=== PATIENT | female | born 1985 | race Caucasian/White ===

== ENCOUNTER 2018-07-22 15:50 | Outpatient (CLI) | payer MEDICAID ==
[2018-07-22] MEDS: BETAMET NA PHOS/AC(6 MG/ML) 2 ML INJ SYG IM (17:23)
[2018-07-22] MEDS: TERBUTALINE 1 MG/ML INJ SC (17:23)
[2018-07-22 18:01] LABS: ADD MAN DIFF? NO; BASOPHILS % 0.2 % (0.0-2.0); EOSINOPHILS # 0.1 10^3/ul (0.0-0.5); EOSINOPHILS % 0.6 % (0.0-7.0); HEMATOCRIT 38.1 % (37.0-47.0); HEMOGLOBIN 12.2 g/dl (12.0-16.0); LYMPHOCYTES # 3.9 10^3/ul (0.8-2.9); LYMPHOCYTES % 28.2 % (15.0-51.0); MEAN CORPUSCULAR HEMOGLOBIN 27.7 pg (29.0-33.0); MEAN CORPUSCULAR VOLUME 86.6 fl (82.0-101.0); MEAN PLATELET VOLUME 10.9 fl (7.4-10.4); MONOCYTE # 0.7 10^3/ul (0.3-0.9); MONOCYTES % 4.9 % (0.0-11.0); NEUTROPHIL # 9.1 10^3/ul (1.6-7.5); NEUTROPHILS % 64.9 % (39.0-77.0); PLATELET COUNT 324 10^3/UL (140-415); RED CELL DISTRIBUTION WIDTH 14.3 % (11.5-14.5)
[2018-07-22] MEDS: LACTATED RINGER'S 500 ML IV (18:16)
[2018-07-22] MEDS: LACTATED RINGER'S 1,000 ML IV (18:43)
== END 2018-07-22 20:05 | disposition home or self-care (01) ==
LOC: OBT 15:50 → L-D 15:53 → OBT 20:05
DX: O62.9 Abnormality of forces of labor, unspecified (principal); Z3A.36 36 weeks gestation of pregnancy
CPT/HCPCS: 85025; 96360; 96361; 96372

== ENCOUNTER 2018-07-23 17:26 | Outpatient (CLI) | payer MEDICAID ==
[2018-07-23] MEDS ORDERED: BETAMET NA PHOS/AC(6 MG/ML) 2 ML INJ SYG IM (18:30)
== END 2018-07-23 18:50 | disposition home or self-care (01) ==
LOC: OBT 17:26 → L-D 17:27 → OBT 18:50
DX: O36.8930 Maternal care for other specified fetal problems, third trimester, not applicable or unspecified (principal); Z3A.37 37 weeks gestation of pregnancy
CPT/HCPCS: 76818

== ENCOUNTER 2018-07-26 17:07 | Outpatient (CLI) | payer MEDICAID | END 2018-07-26 18:45 | disposition home or self-care (01) | LOC: OBT 17:07 → L-D 17:09 → OBT 18:45 | DX: O28.9 Unspecified abnormal findings on antenatal screening of mother (principal); Z3A.37 37 weeks gestation of pregnancy | CPT/HCPCS: 76815; 76818 ==

== ENCOUNTER 2018-08-06 15:10 | Inpatient (IN) | payer MEDICAID ==
[2018-08-06 16:01] LABS: RUPTURE FETAL MEMBRANES POSITIVE (NEGATIVE)
[2018-08-06] MEDS ORDERED: MISOPROSTOL 200 MCG TAB PR (16:30)
[2018-08-06] MEDS ORDERED: METHYLERGONOVINE 0.2 MG INJ IM (16:30)
[2018-08-06] MEDS ORDERED: CARBOPROST 250 MCG INJ IM (16:30)
[2018-08-06 16:31] LABS: WHITE BLOOD COUNT 12.2 10^3/ul (4.8-10.8)
[2018-08-06 16:31] LABS: ADD MAN DIFF? NO; BASOPHILS % 0.2 % (0.0-2.0); EOSINOPHILS # 0.1 10^3/ul (0.0-0.5); EOSINOPHILS % 0.5 % (0.0-7.0); HEMATOCRIT 40.2 % (37.0-47.0); LYMPHOCYTES # 2.6 10^3/ul (0.8-2.9); LYMPHOCYTES % 21.4 % (15.0-51.0); MEAN CORPUSCULAR HEMOGLOBIN 27.8 pg (29.0-33.0); MEAN CORPUSCULAR HGB CONC 32.3 g/dl (32.0-37.0); MEAN CORPUSCULAR VOLUME 85.9 fl (82.0-101.0); MEAN PLATELET VOLUME 11.2 fl (7.4-10.4); MONOCYTE # 0.7 10^3/ul (0.3-0.9); MONOCYTES % 5.6 % (0.0-11.0); NEUTROPHIL # 8.7 10^3/ul (1.6-7.5); NEUTROPHILS % 71.5 % (39.0-77.0); PLATELET COUNT 331 10^3/UL (140-415); RED BLOOD COUNT 4.68 10^6/ul (4.20-5.40)
[2018-08-06 16:39] LABS: ADD UMIC YES; UR AMORPHOUS CRYSTAL FEW /HPF (NONE SEEN); UR ASCORBIC ACID NEGATIVE (NEGATIVE); UR BACTERIA FEW /HPF (NONE SEEN); UR BILIRUBIN (Dip) NEGATIVE (NEGATIVE); UR BLOOD (Dip) 1+ mg/dL (NEGATIVE); UR CLARITY CLOUDY (CLEAR); UR COLOR YELLOW (YELLOW); UR GLUCOSE (Dip) NEGATIVE (NEGATIVE); UR KETONES (Dip) NEGATIVE (NEGATIVE); UR LEUKOCYTE ESTERASE (Dip) 1+ Leu/ul (NEGATIVE); UR NITRITE (Dip) NEGATIVE (NEGATIVE); UR RBC 23 /HPF (0-5); UR SPECIFIC GRAVITY (Dip) 1.005 (1.003-1.030); UR SQUAMOUS EPITHELIAL CELL MODERATE /HPF (FEW); UR TOTAL PROTEIN (Dip) 1+ mg/dl (NEGATIVE); UR UROBILINOGEN (Dip) NEGATIVE (NEGATIVE); UR WBC 20 /HPF (0-5)
[2018-08-06 16:52] LABS: INR 0.85; PROTIME 11.7 Sec (11.9-14.9); PT RATIO 0.9
[2018-08-06 16:53] LABS: PARTIAL THROMBOPLASTIN TIME 24.7 Sec (23.0-35.0)
[2018-08-06 17:20] LABS: HEPATITIS B SURFACE ANTIGEN NEGATIVE (NEGATIVE)
[2018-08-06] MEDS: LACTATED RINGER'S 1,000 ML IV ×3 (18:49→22:27)
[2018-08-06 20:31] LABS: RAPID PLASMA REAGIN NONREACTIVE (NR)
[2018-08-06] MEDS ORDERED: BUPIVACAINE 0.75%/DEXT (SPINAL) 2 ML INJ (21:30)
[2018-08-06] MEDS ORDERED: morphine SULFATE/PF (10 MG/10 ML) INJ (21:31)
[2018-08-06] MEDS ORDERED: MIDAZOLAM 1 MG/ML 2 ML INJ ×3 (22:14→22:44)
[2018-08-06] MEDS ORDERED: OXYTOCIN 10 UNIT INJ (22:15)
[2018-08-06] MEDS ORDERED: ONDANSETRON 4 MG INJ (22:25)
[2018-08-06] MEDS ORDERED: NALBUPHINE HCL (10 MG/1 ML) INJ IV (22:30)
[2018-08-06] MEDS ORDERED: NALOXONE (0.4 MG/ML) INJ IV (22:30)
[2018-08-06] MEDS ORDERED: ONDANSETRON 4 MG INJ IV (22:30)
[2018-08-06] MEDS ORDERED: DIPHENHYDRAMINE 50 MG INJ IV ×2 (22:30)
[2018-08-06] MEDS ORDERED: HYDROmorphONE 0.5 MG/0.5 ML SYG IV ×2 (22:30)
[2018-08-06] MEDS ORDERED: MIDAZOLAM 1 MG/ML 2 ML INJ IV (22:30)
[2018-08-06] MEDS ORDERED: ZOLPIDEM 5 MG TAB PO (22:30)
[2018-08-06] MEDS ORDERED: MEPERIDINE 25 MG INJ IV (22:30)
[2018-08-06] MEDS ORDERED: MEPERIDINE 100 MG INJ (22:47)
[2018-08-06] MEDS ORDERED: LIDOCAINE 100 MG SYRINGE (22:57)
[2018-08-06] MEDS ORDERED: LIDOCAINE 2% (SDV) 5 ML INJ (22:57)
[2018-08-06] MEDS ORDERED: AZITHROMYCIN 500MG/NS (PMX) 250 ML (23:31)
[2018-08-06] MEDS ORDERED: KETOROLAC 30 MG INJ (23:32)
[2018-08-06] MEDS: OXYTOCIN 30 UNITS/LR 500 ML IV (23:58)
[2018-08-06] MEDS: AZITHROMYCIN 500MG/NS (PMX) 250 ML IVPB (23:59)
[2018-08-07] MEDS: CEFAZOLIN 3 GM in DEXTROSE 5% 100 ML IV (01:11)
[2018-08-07] MEDS: KETOROLAC 30 MG INJ IV ×3 (02:05→17:56)
[2018-08-07] MEDS: CLINDAMYCIN 300 MG CAP PO ×4 (03:00→17:53)
[2018-08-07] MEDS ORDERED: LANOLIN 7 GM TUBE TOP (03:00)
[2018-08-07] MEDS: OXYTOCIN 30 UNITS/LR 500 ML IV (03:00)
[2018-08-07] MEDS ORDERED: OXYTOCIN 30 UNITS/LR 500 ML IV (03:00)
[2018-08-07] MEDS ORDERED: CARBOPROST 250 MCG INJ IM (03:00)
[2018-08-07] MEDS ORDERED: MISOPROSTOL 200 MCG TAB PR (03:00)
[2018-08-07] MEDS ORDERED: METHYLERGONOVINE 0.2 MG INJ IM (03:00)
[2018-08-07] MEDS: CEFAZOLIN 2 GM/50 ML (PMX) 50 ML IVPB ×3 (03:48→18:48)
[2018-08-07] MEDS: ONDANSETRON 4 MG INJ IV (04:31)
[2018-08-07] MEDS: LACTATED RINGER'S 1,000 ML IV ×2 (04:32→16:16)
[2018-08-07 05:58] LABS: WHITE BLOOD COUNT 12.8 10^3/ul (4.8-10.8)
[2018-08-07 05:58] LABS: ADD MAN DIFF? NO; BASOPHILS % 0.2 % (0.0-2.0); EOSINOPHILS % 0.2 % (0.0-7.0); HEMATOCRIT 32.5 % (37.0-47.0); HEMOGLOBIN 10.5 g/dl (12.0-16.0); LYMPHOCYTES % 15.9 % (15.0-51.0); MEAN CORPUSCULAR HEMOGLOBIN 27.9 pg (29.0-33.0); MEAN CORPUSCULAR HGB CONC 32.3 g/dl (32.0-37.0); MEAN CORPUSCULAR VOLUME 86.2 fl (82.0-101.0); MONOCYTE # 0.6 10^3/ul (0.3-0.9); MONOCYTES % 4.8 % (0.0-11.0); NEUTROPHILS % 78.4 % (39.0-77.0); PLATELET COUNT 266 10^3/UL (140-415); RED BLOOD COUNT 3.77 10^6/ul (4.20-5.40); RED CELL DISTRIBUTION WIDTH 15.2 % (11.5-14.5)
[2018-08-07] MEDS ORDERED: IBUPROFEN 800 MG TAB PO (06:00)
[2018-08-07] MEDS: SENNA/DOCUSATE NA (8.6MG/50MG) TAB PO ×2 (09:23→21:15)
[2018-08-07] MEDS: BISACODYL 10 MG SUPP PR (10:30)
[2018-08-07] MEDS: OXYCODONE/ACETAMINOPHEN (5/325) TAB PO ×2 (14:37→22:09)
[2018-08-07] MEDS: IBUPROFEN 800 MG TAB PO (22:28)
[2018-08-07 23:11] LABS: ADD MAN DIFF? NO
[2018-08-07 23:13] LABS: BASOPHILS % 0.2 % (0.0-2.0); EOSINOPHILS # 0.1 10^3/ul (0.0-0.5); EOSINOPHILS % 1.1 % (0.0-7.0); HEMATOCRIT 30.9 % (37.0-47.0); LYMPHOCYTES # 2.2 10^3/ul (0.8-2.9); LYMPHOCYTES % 21.9 % (15.0-51.0); MEAN CORPUSCULAR HEMOGLOBIN 27.8 pg (29.0-33.0); MEAN CORPUSCULAR HGB CONC 32.4 g/dl (32.0-37.0); MEAN CORPUSCULAR VOLUME 85.8 fl (82.0-101.0); MEAN PLATELET VOLUME 10.6 fl (7.4-10.4); MONOCYTE # 0.7 10^3/ul (0.3-0.9); MONOCYTES % 7.1 % (0.0-11.0); NEUTROPHIL # 6.8 10^3/ul (1.6-7.5); NEUTROPHILS % 69.1 % (39.0-77.0); PLATELET COUNT 266 10^3/UL (140-415); RED CELL DISTRIBUTION WIDTH 15.6 % (11.5-14.5)
[2018-08-07 23:13] LABS: WHITE BLOOD COUNT 9.9 10^3/ul (4.8-10.8)
[2018-08-07 23:31] LABS: ALANINE AMINOTRANSFERASE 26 IU/L (13-69); ALBUMIN 2.8 g/dl (3.3-4.9); ALBUMIN/GLOBULIN RATIO 0.96; ALKALINE PHOSPHATASE 124 IU/L (42-121); ANION GAP 4 (5-13); ASPARTATE AMINO TRANSFERASE 26 IU/L (15-46); BILIRUBIN,INDIRECT 0.2 mg/dl (0-1.1); BILIRUBIN,TOTAL 0.2 mg/dl (0.2-1.3); BLOOD UREA NITROGEN 6 mg/dl (7-20); CALCIUM 8.6 mg/dl (8.4-10.2); CARBON DIOXIDE 28 mmol/L (21-31); CHLORIDE 103 mmol/L (97-110); CREATININE 0.48 mg/dl (0.44-1.00); Estimated GFR > 60 mL/min (>60); GLUCOSE 103 mg/dl (70-220); POTASSIUM 4.2 mmol/L (3.5-5.1); SODIUM 135 mmol/L (135-144); TOTAL PROTEIN 5.7 g/dl (6.1-8.1)
[2018-08-08] MEDS: LACTATED RINGER'S 1,000 ML IV ×3 (00:30→15:34)
[2018-08-08] MEDS: CLINDAMYCIN 300 MG CAP PO ×5 (01:15→23:32)
[2018-08-08] MEDS: SOD CHLORIDE 0.9% 100 ML (01:39)
[2018-08-08] MEDS: IOHEXOL 300MG/ML 150 ML BTL (01:39)
[2018-08-08] MEDS: HYDROCODONE/APAP (5/325) TAB PO ×4 (04:51→19:53)
[2018-08-08] MEDS: IBUPROFEN 800 MG TAB PO ×3 (06:14→22:13)
[2018-08-08] MEDS: SENNA/DOCUSATE NA (8.6MG/50MG) TAB PO ×2 (09:05→22:13)
[2018-08-08] MEDS: NA PHOSPHATE/BIPHOS 133 ML ENEMA PR (09:05)
[2018-08-08] MEDS ORDERED: BISACODYL 10 MG SUPP PR (16:55)
[2018-08-08] MEDS: BISACODYL 10 MG SUPP PR (17:31)
[2018-08-09] MEDS: LACTATED RINGER'S 1,000 ML IV ×2 (00:30→08:30)
[2018-08-09] MEDS: HYDROCODONE/APAP (5/325) TAB PO (03:28)
[2018-08-09] MEDS: CLINDAMYCIN 300 MG CAP PO ×2 (05:40→11:58)
[2018-08-09] MEDS: IBUPROFEN 800 MG TAB PO (05:41)
[2018-08-09] MEDS: DIPHTH/TET/ACEL PERTUSS (ADULT) 0.5 ML VIAL IM* (09:26)
[2018-08-09] MEDS: SENNA/DOCUSATE NA (8.6MG/50MG) TAB PO (09:26)
[2018-08-09] MEDS: MEASLES,MUMPS,RUBELLA VACCINE INJ SC* (09:26)
[2018-08-09] MEDS: OXYCODONE/ACETAMINOPHEN (5/325) TAB PO (11:58)
== END 2018-08-09 13:12 | disposition home or self-care (01) | DRG 785 ==
LOC: OBT 15:10 → PP1 08-07 02:27 → L-D 15:10 → PP1 08-07 15:26 → OBT 16:15 → L-D 16:19
PROC: 10D00Z1 Extraction of Products of Conception, Low, Open Approach (ICD-10-PCS; principal; 2018-08-06 22:15)
PROC: 0UL70ZZ Occlusion of Bilateral Fallopian Tubes, Open Approach (ICD-10-PCS; 2018-08-06 22:15)
PROC: 3E033VJ Introduction of Other Hormone into Peripheral Vein, Percutaneous Approach (ICD-10-PCS; 2018-08-06 22:15)
DX: O34.211 Maternal care for low transverse scar from previous cesarean delivery (principal); Z30.2 Encounter for sterilization; Z3A.39 39 weeks gestation of pregnancy; Z37.0 Single live birth
CPT/HCPCS: 74178; 80053; 81001; 82962; 84112; 85025; 85610; 85730; 86592; 86850; 86900; 86901; 87086; 87340; 88302; 99464